=== PATIENT | female | born 1970 | race Native Hawaiian/Other Pacific Islander ===

== ENCOUNTER 2016-08-24 09:00 | Outpatient (CLI) | payer BC | END 2016-08-24 19:04 | disposition home or self-care (01) | LOC: MAMMO 09:00 | DX: Z12.31 Encounter for screening mammogram for malignant neoplasm of breast (principal) | CPT/HCPCS: G0202-TC ==

== ENCOUNTER 2016-09-13 13:44 | Outpatient (CLI) | payer BC | END 2016-09-13 19:33 | disposition home or self-care (01) | LOC: MAMMO 13:44 | DX: R92.2 Inconclusive mammogram (principal) | CPT/HCPCS: G0206-TC ==

== ENCOUNTER 2017-01-16 08:53 | Outpatient (CLI) | payer BC | END 2017-01-16 10:00 | disposition home or self-care (01) | LOC: RESP 08:53 | DX: I10 Essential (primary) hypertension (principal) | CPT/HCPCS: 93306 ==

== ENCOUNTER 2017-03-08 14:59 | Outpatient (CLI) | payer BC | END 2017-03-08 19:15 | disposition home or self-care (01) | LOC: MAMMO 14:59 | DX: N60.11 Diffuse cystic mastopathy of right breast (principal) ==

== ENCOUNTER 2017-06-14 15:42 | Outpatient (CLI) | payer BC ==
[2017-06-14] MEDS ORDERED: LEVO0.1T6 PO (15:56)
[2017-06-14] MEDS ORDERED: DIOVAN HC1 PO (15:57)
[2017-06-14] MEDS ORDERED: ASPIR-8181 MG PO (15:58)
== END 2017-06-14 15:46 | disposition short-term general hospital (02) ==
LOC: AMB 15:42
DX: R55 Syncope and collapse (principal); R20.0 Anesthesia of skin; R53.1 Weakness
CPT/HCPCS: A0425; A0427

== ENCOUNTER 2017-06-14 15:46 | Observation (INO) | payer BC ==
[~2017-06-14] VITALS: Ht 160 cm; Wt 92.3 kg
[2017-06-14] MEDS ORDERED: LEVO0.1T6 PO (15:56)
[2017-06-14] MEDS ORDERED: DIOVAN HC1 PO (15:57)
[2017-06-14] MEDS ORDERED: ASPIR-8181 MG PO (15:58)
[2017-06-14 16:03] VITALS: BP 99/67; TEMP 97.2
[2017-06-14 16:24] LABS: PLATELET COUNT 245 K/uL (152-353)
[2017-06-14 16:32] LABS: POTASSIUM 2.6 mmol/L (3.6-5.2); SODIUM 136 mmol/L (136-145)
[2017-06-15] VITALS (7 sets, daily range): BP systolic 107–133; BP diastolic 60–74; TEMP 97.5–98.5; Ht 160 cm; Wt 92.3 kg
[2017-06-15 15:12] LABS: PLATELET COUNT 170 K/uL (152-353)
[2017-06-15 16:14] LABS: POTASSIUM 2.9 mmol/L (3.6-5.2)
[2017-06-16 00:16] VITALS: BP 117/59; TEMP 98.7
[2017-06-16 04:00] VITALS: BP 113/51; TEMP 97.9
[2017-06-16 05:25] LABS: PLATELET COUNT 117 K/uL (152-353)
[2017-06-16 05:46] LABS: POTASSIUM 3.1 mmol/L (3.6-5.2)
[2017-06-16 08:00] VITALS: BP 114/51; TEMP 97.4
== END 2017-06-16 11:50 | disposition home or self-care (01) ==
LOC: ED 15:46 → MED/SURG 18:25
PROVIDERS: Internal Medicine
DX: R55 Syncope and collapse (principal); I48.91 Unspecified atrial fibrillation; I10 Essential (primary) hypertension
CPT/HCPCS: 36415; 80053; 81000; 82550; 82553; 83615; 83735; 84443; 84484; 85007; 85027; 93005; 96361; 96365; 96366; 96367; 99220; 99284; G0378; J0132; J0696; J1650; J3490

== ENCOUNTER 2017-09-03 11:40 | Outpatient (CLI) | payer BC ==
[~2017-09-03 11:40] MED LIST: ASPIR-8181 MG PO; DIOVAN HC1 PO; LEVO0.1T6 PO
== END 2017-09-03 22:27 | disposition home or self-care (01) ==
LOC: RAD 11:40
DX: R06.02 Shortness of breath (principal)

== ENCOUNTER 2017-10-01 16:21 | Outpatient (CLI) | payer BC | END 2017-10-01 22:10 | disposition home or self-care (01) | LOC: CT 16:21 | DX: R93.8 Abnormal findings on diagnostic imaging of other specified body structures (principal) ==

== ENCOUNTER 2018-06-10 15:35 | Outpatient (CLI) | payer BC | END 2018-06-10 19:50 | disposition home or self-care (01) | LOC: MAMMO 15:35 → US 16:00 → MAMMO 19:50 | DX: Z12.31 Encounter for screening mammogram for malignant neoplasm of breast (principal); Q61.2 Polycystic kidney, adult type ==

== ENCOUNTER 2018-06-25 13:09 | Outpatient (CLI) | payer BC | END 2018-06-25 19:29 | disposition home or self-care (01) | LOC: MAMMO 13:09 | DX: R92.2 Inconclusive mammogram (principal); J98.4 Other disorders of lung ==

== ENCOUNTER 2021-05-18 09:28 | Outpatient (CLI) | payer BC | END 2021-05-18 18:56 | disposition home or self-care (01) | LOC: MAMMO 09:28 | PROVIDERS: ATTEND Obstetrics & Gynecology | DX: Z12.31 Encounter for screening mammogram for malignant neoplasm of breast (principal) ==

== ENCOUNTER 2022-03-14 09:24 | Outpatient (CLI) | payer BC | END 2022-03-14 19:55 | disposition home or self-care (01) | LOC: CT 09:24 | PROVIDERS: ATTEND Internal Medicine | DX: Q61.2 Polycystic kidney, adult type (principal) ==